=== PATIENT | female | born 1940 | race Caucasian/White ===

== ENCOUNTER → 2017-01-09 | Outpatient (CLI) | payer OTHER ==
[~2017-01-09] MED LIST: ADULT LOW STREN81 M2 PO; ASPIR 8181 M1 PO; BETAPACE,SORINE80 M1 PO; BETAPACE80 MG PO; CELEBREX100 MG PO; CELEXA20 MG PO; CELEXA40 MG PO; CITALOPRAM HBR20 M1 PO; KLONOPIN1 MG PO; LIPITOR40 MG PO; LOPRESSOR50 MG PO; PRAVACHOL40 MG PO; PRILOSEC20 MG PO; Pradaxa PO; Tylenol Regular Stre PO; ULTRACET TABLE1 EACH PO; ULTRACET1 TABLET PO; ULTRAM ER 100100 MG PO; ZESTRIL,PRINIVI10 MG PO; ZESTRIL10 MG PO; ZESTRIL20 MG PO
[2017-01-09 08:33] LABS: BASE EXCESS 3.6 mEq/L (-3 to +3); BICARBONATE 28.5 mEq/L (22-26); CARBOXY HGB 1.8 % (0-5); COMMENTS - BLOOD GASES C+; DEVICE RA; METHEMOGLOBIN 1.1 % (0-1.5); PCO2 43 mm Hg (35-45); PO2 84 mm Hg (80-100); SITE RB; pH 7.43 (7.35-7.45)
[2017-01-09 08:34] LABS: TOTAL RESP RATE 14 resp/min
== END | disposition home or self-care (01) ==
LOC: RES 07:46
PROVIDERS: Internal Medicine Cardiovascular Disease
DX: J44.9 Chronic obstructive pulmonary disease, unspecified (principal)
CPT/HCPCS: 36600; 82803; 94060; 94726; 94729

== ENCOUNTER 2017-08-17 07:07 | Day surgery (SDC) | payer OTHER ==
[~2017-08-17] VITALS: Ht 157.5 cm; Wt 89.8 kg
[~2017-08-17 07:07] MED LIST changes: +NEURONTIN300 MG PO
== END 2017-08-17 08:50 | disposition home or self-care (01) ==
LOC: PAIN 07:07 → SDC 08:00 → PAIN 08:50
DX: M47.816 Spondylosis without myelopathy or radiculopathy, lumbar region (principal); M54.5 Low back pain; G89.29 Other chronic pain; M47.22 Other spondylosis with radiculopathy, cervical region; F41.8 Other specified anxiety disorders; I10 Essential (primary) hypertension; E03.9 Hypothyroidism, unspecified; I25.10 Atherosclerotic heart disease of native coronary artery without angina pectoris; K21.9 Gastro-esophageal reflux disease without esophagitis; E78.5 Hyperlipidemia, unspecified; E66.9 Obesity, unspecified; I48.0 Paroxysmal atrial fibrillation; Z79.82 Long term (current) use of aspirin
CPT/HCPCS: J1030; J2250; J3010; J7050; S0020

== ENCOUNTER 2017-08-24 07:06 | Day surgery (SDC) | payer OTHER ==
[~2017-08-24] VITALS: Ht 157.5 cm; Wt 89.8 kg
== END 2017-08-24 09:00 | disposition home or self-care (01) ==
LOC: PAIN 07:06 → SDC 08:00 → PAIN 09:00
DX: M47.816 Spondylosis without myelopathy or radiculopathy, lumbar region (principal); M12.88 Other specific arthropathies, not elsewhere classified, other specified site; M19.90 Unspecified osteoarthritis, unspecified site; I25.10 Atherosclerotic heart disease of native coronary artery without angina pectoris; E03.9 Hypothyroidism, unspecified; M47.22 Other spondylosis with radiculopathy, cervical region; K21.9 Gastro-esophageal reflux disease without esophagitis; E78.5 Hyperlipidemia, unspecified; F41.1 Generalized anxiety disorder; I10 Essential (primary) hypertension; E66.9 Obesity, unspecified; Z68.35 Body mass index [BMI] 35.0-35.9, adult; I48.0 Paroxysmal atrial fibrillation; R73.03 Prediabetes
CPT/HCPCS: J1030; J2250; J3010; S0020

== ENCOUNTER 2017-10-12 07:11 | Day surgery (SDC) | payer OTHER ==
[~2017-10-12] VITALS: Ht 157.5 cm; Wt 93.0 kg
== END 2017-10-12 09:15 | disposition home or self-care (01) ==
LOC: PAIN 07:11 → SDC 08:00 → PAIN 09:15
DX: M47.816 Spondylosis without myelopathy or radiculopathy, lumbar region (principal); M54.5 Low back pain; G89.29 Other chronic pain; M47.22 Other spondylosis with radiculopathy, cervical region; E03.9 Hypothyroidism, unspecified; I10 Essential (primary) hypertension; F41.8 Other specified anxiety disorders; I25.10 Atherosclerotic heart disease of native coronary artery without angina pectoris; Z79.891 Long term (current) use of opiate analgesic
CPT/HCPCS: 93005; J1030; J2250; J3010; S0020

== ENCOUNTER 2017-11-19 07:04 | Day surgery (SDC) | payer OTHER ==
[~2017-11-19] VITALS: Ht 157.5 cm; Wt 93.0 kg
[~2017-11-19 07:04] MED LIST changes: +ELIQUIS5 MG PO
== END 2017-11-19 09:20 | disposition home or self-care (01) ==
LOC: PAIN 07:04
DX: M47.816 Spondylosis without myelopathy or radiculopathy, lumbar region (principal); M47.812 Spondylosis without myelopathy or radiculopathy, cervical region; I10 Essential (primary) hypertension; E03.9 Hypothyroidism, unspecified; F41.8 Other specified anxiety disorders; I25.10 Atherosclerotic heart disease of native coronary artery without angina pectoris; M46.92 Unspecified inflammatory spondylopathy, cervical region; K21.9 Gastro-esophageal reflux disease without esophagitis; E78.5 Hyperlipidemia, unspecified; E66.9 Obesity, unspecified; I48.0 Paroxysmal atrial fibrillation; Z68.37 Body mass index [BMI] 37.0-37.9, adult
CPT/HCPCS: J1030; J2250; J3010; S0020

== ENCOUNTER 2018-05-10 10:08 | Day surgery (SDC) | payer OTHER ==
[~2018-05-10] VITALS: Ht 157.5 cm; Wt 92.5 kg
[~2018-05-10 10:08] MED LIST changes: -NEURONTIN300 MG PO; +NEURONTIN600 MG PO
== END 2018-05-10 11:57 | disposition home or self-care (01) ==
LOC: PAIN 10:08 → SDC 11:00 → PAIN 11:00
PROC: 3E0U33Z Introduction of Anti-inflammatory into Joints, Percutaneous Approach (ICD-10-PCS; principal; 2018-05-10)
PROC: 3E0U3BZ Introduction of Anesthetic Agent into Joints, Percutaneous Approach (ICD-10-PCS; principal; 2018-05-10)
DX: M53.3 Sacrococcygeal disorders, not elsewhere classified (principal); M46.1 Sacroiliitis, not elsewhere classified; M47.816 Spondylosis without myelopathy or radiculopathy, lumbar region; M54.16 Radiculopathy, lumbar region; E03.9 Hypothyroidism, unspecified; I25.10 Atherosclerotic heart disease of native coronary artery without angina pectoris; M47.812 Spondylosis without myelopathy or radiculopathy, cervical region; I10 Essential (primary) hypertension; E78.5 Hyperlipidemia, unspecified; I48.1 Persistent atrial fibrillation; E78.00 Pure hypercholesterolemia, unspecified; E66.9 Obesity, unspecified; Z68.36 Body mass index [BMI] 36.0-36.9, adult; K21.9 Gastro-esophageal reflux disease without esophagitis; F41.9 Anxiety disorder, unspecified; Z79.82 Long term (current) use of aspirin; Z79.01 Long term (current) use of anticoagulants
CPT/HCPCS: J1030; S0020